=== PATIENT | female | born 1950 | race African-American/Black ===

== ENCOUNTER 2016-08-13 17:09 | Inpatient (IN) | payer BC, OTHER ==
[~2016-08-13] VITALS: Ht 170.2 cm; Wt 72.1 kg
--- NOTE | ~2016-08-13 | CNG ---
[facility] [place] [address] CYTO-NONGYN REPORT PROCEDURE Name: NESHA DUMONT Room #: 441-P DIS IN M.R.#: [id number] Admission: 08/13/16 Date of : 54 Discharge: 08/16/16 Report #: [id number] Path Case #: [id number] CYTOPATHOLOGY REPORT COLLECTION DATE: 08/15/2016 RECEIVED DATE: 08/15/2016 SUBMITTING PHYS: Dr. aZk Claudio OTHER PHYS: Dr. Zeus Burt CLINICAL HISTORY: HTN crisis. See also [id number]. SPECIMEN(S) RECEIVED: A.Bronchial brushings, RUL B.Bronchial brush rinse, RUL C.TBNA, RBI D.TBNA, RBI Passes 2-3 E.Bronchial wash, NOS F.Bronchial brushings, RBI G.Bronchial brush rinse, RBI * * * * * * * * * * * * FINAL DIAGNOSIS: A. Lung, right upper lobe, bronchial brushings: - MALIGNANT CELLS IDENTIFIED WITH FEATURES OF CARCINOMA. B. Lung, right upper lobe, bronchial brush rinse: - MALIGNANT CELLS IDENTIFIED WITH FEATURES OF CARCINOMA. C. Lung, RBI, TBNA: - MALIGNANT CELLS IDENTIFIED WITH FEATURES OF CARCINOMA. D. Lung, RBI Passes 2-3, TBNA: - MALIGNANT CELLS IDENTIFIED WITH FEATURES OF CARCINOMA. E. Lung, bronchial washing: - RARE MALIGNANT CELLS IDENTIFIED WITH FEATURES OF CARCINOMA. F. Lung, RBI, bronchial brushings: - RARE SINGLE ATYPICAL CELLS IDENTIFIED, MORPHOLOGICALLY SIMILAR TO THE ONES IDENTIFIED IN THE BRUSHING SMEARS. G. Lung, bronchial brush rinse: - RARE SINGLE ATYPICAL CELLS IDENTIFIED, MORPHOLOGICALLY SIMILAR TO THE ONES IDENTIFIED IN THE BRUSHING SMEARS. COMMENT: Co-review: Dr. Jian Hodges. Findings of this case are relayed to Dr. Zak Claudio and Dr. Yadira Burt at approximately 1:50 p.m. on 08/16/16. The case is discussed at the Thoracic Tumor Conference on 08/17/2016. Immunohistochemical stains are performed to further characterize the neoplasm (cell block). TTF-1 Non-reactive [address] [address] CYTO-NONGYN REPORT PROCEDURE Name: NESHA DUMONT Room #: 441-P DIS IN M.R.#: [id number] Admission: 08/13/16 Date of : 54 Discharge: 08/16/16 Report #: [id number] Path Case #: [id number] AE1/AE3 Strong membranous reactivity and dot-like reactivity present P40 - Non-reactive Synaptophysin - Non-reactive Chromogranin - Non-reactive The concurrent biopsy tissue ([id number]) showed the same. An extended immunohistochemical stain panel is performed on this specimen which is pending at the time of this report. The results will be reported separately. Please see separate report for details. (IUV:db; 08/16/2016) PATHOLOGIST: Kathy Hyman M.D. REPORT ELECTRONICALLY SIGNED BY: Kathy Hyman M.D. DATE/TIME: 08/17/2016 16:01 * * * * * * * * * * * * GROSS PATHOLOGY: A. Bronchial brushings, RUL: The specimen is labeled "Bridges, Demaira" and consists of three fixed slides. B. Bronchial brush rinse, RUL: The specimen is labeled "Bridges, Demaira" and consists of a brush tip in fixative. One ThinPrep slide was prepared. C. TBNA, RBI: The specimen is labeled "Bridges, Demaira" and consists of two fixed slides. D. TBNA, RBI Passes 2-3: The specimen is labeled "Bridges, Demaira". Ten mL of cloudy brown fluid in formalin from the needle rinse is submitted and a cell block only was prepared from this material. E. Bronchial wash, NOS: The specimen is submitted unfixed, labeled "Bridges, Demaira". Received by the Cytology Department is 10 mL of red fluid. One ThinPrep slide was prepared. F. Bronchial brushings, RBI: The specimen is labeled "Bridges, Demaira" and consists of three fixed slides. G. Bronchial brush rinse, RBI: The specimen is labeled "Bridges, Demaira" and consists of a brush tip in fixative. One ThinPrep slide was prepared. (clt 08.15.2016) WIND TUNNEL ENGINEER(S): JUAN Schumacher([facility]) INITIAL CPT CODE(S): A; 44568 B; 31810 C; 17703 D; 08183, 03491, 56860, 15669, 80576, 06427, 68214 E; 89849 F; 80884 G; 44629 Professional services performed by [facility] at [facility] [address] [place] [address] [facility] [place] [address] CYTO-NONGYN REPORT PROCEDURE Name: NESHA DUMONT Room #: 441-P DIS IN M.R.#: [id number] Admission: 08/13/16 Date of : 54 Discharge: 08/16/16 Report #: [id number] Path Case #: [id number] [facility] at [address] [place] [address], [address], [place] [address]. [address], [facility] [address] [place] [address] PHONE: [phone] DIRECTOR: Devonte Clemente M.D. * * * END OF REPORT * * *
--- NOTE | ~2016-08-13 | EKG ---
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: [id number] : 1950 Requested By: Trinidad Chino Order Number: [id number] MD: James Marshall Measurements Intervals Warren Rate: 84 P: 42 OK: 142 QRS: -10 QRSD: 96 T: 46 QT: 373 QTc: 441 Interpretive Statements Sinus rhythm No significant abnormality No previous ECG available for comparison Electronically Signed On 08-15-2016 9:13:06 CDT by James Marsahll [email or web address] <ELECTRONICALLY SIGNED> By: James Marshall MD, [facility] 08/15/16 0913 1722 1722 James Marshall MD, [facility] /EPI
--- NOTE | ~2016-08-13 | S ---
[facility] [place] [address] SURGICAL PATH RPT PROCEDURE Name: NESHA DUMONT Room #: 441-P [facility] IN M.R.#: [id number] Admission: 08/13/16 Date of : 54 Discharge: 08/16/16 Report #: [id number] Path Case #: [id number] PATHOLOGY REPORT COLLECTION DATE: 08/15/2016 RECEIVED DATE: 08/15/2016 SUBMITTING PHYS: Dr. Zak Claudio OTHER PHYS: Dr. Zeus Spence SPECIMEN(S) RECEIVED: A.Biopsy forceps RBI * * * * * * * * * * * * FINAL DIAGNOSIS: Bronchus, RBI, biopsy: - POSITIVE FOR MALIGNANCY; CONSISTENT WITH A POORLY DIFFERENTIATED CARCINOMA (PLEASE SEE COMMENT). COMMENT: Examination shows a tumor with extensive apoptotic bodies as well as necrosis associated with a crush artifact. Multiple immunohistochemical stains including TTF-1, Napsin, p63, CK5/6, AE1/AE3, CD56, and Synaptophysin are ordered on block A1. The results of these will be reported in an addendum to follow with a refined diagnosis. Co-review: Dr. Jian Hodges Findings of this case are discussed with Dr. Zak Claudio at approximately 1:30 p.m. on 08/17/16. (IUV:mgr; 08/17/2016) PATHOLOGIST: Kathy Hyman M.D. REPORT ELECTRONICALLY SIGNED BY: Kathy Hyman M.D. DATE/TIME: 08/17/2016 15:53 * * * * * * * * * * * * GROSS PATHOLOGY: The specimen is received in formalin labeled "MIKAL Renteria". Received are multiple segments of pale curiel soft tissue measuring 0.8 x 0.7 x 0.1 cm in aggregate dimensions. The specimen is filtered and entirely submitted in cassette A1. (CAA; 08/16/2016) CLINICAL HISTORY: HTN crisis [facility] [place] [address] SURGICAL PATH RPT PROCEDURE Name: NESHA DUMONT Room #: 441-P [facility] IN M.R.#: [id number] Admission: 08/13/16 Date of : 54 Discharge: 08/16/16 Report #: [id number] Path Case #: [id number] INITIAL CPT CODE(S): A; 27900, 00401, 68839, 80967, 80572, 76093, 46323, 25030 Professional services performed by [facility] at [facility] [address], [place] [address] Technical services performed by [facility] at [address] [place] [address], [facility] [address] [address]. [facility] [address] [place] [address] PHONE: [phone] DIRECTOR: Devonte Clemente M.D. * * * END OF REPORT * * *
[2016-08-13 17:15] VITALS: BP 200/144
[2016-08-13] MEDS ORDERED: SINGULAIR 10 MG10 M1 PO (17:30)
[2016-08-13] MEDS ORDERED: ACCUNEB SO1.25 MG/1 INH (17:33)
[2016-08-13 17:58] LABS: BASOPHILS 0.9 % (0.0-2.0); EOSINOPHILS 1.2 % (0.0-3.0); HEMATOCRIT 33.9 % (37.0-47.0); HEMOGLOBIN 11.4 gm/dL (12.0-15.0); LYMPHOCYTES 20.5 % (24.0-44.0); MCH 27.2 pg (26.0-34.0); MCHC 33.7 g/dL (28.0-37.0); MCV 80.8 fL (80.0-100.0); MONOCYTES 11.9 % (1.0-8.0); PLATELET COUNT 352 thou/uL (150-400); POLYS 65.5 % (36.0-66.0); RBC 4.19 mil/uL (4.20-5.00)
[2016-08-13 17:59] LABS: MANUAL DIFF NO
[2016-08-13 18:04] LABS: URINE BILIRUBIN NEGATIVE (Negative); URINE BLOOD 3+ (Negative); URINE COLOR YELLOW; URINE GLUCOSE-RANDOM* NEGATIVE (Negative); URINE KETONES NEGATIVE (Negative); URINE NITRITE NEGATIVE (Negative); URINE PROTEIN (DIPSTICK) TRACE (Negative); URINE UROBILINOGEN 0.2 E.U./dl (0.2-1.0)
[2016-08-13 18:07] LABS: ANION GAP 12 mmol/L (7-16); BUN 26 mg/dL (7-18); CALCIUM 10.5 mg/dL (8.5-10.1); CHLORIDE 100 mmol/L (98-107); CO2 23 mmol/L (21-32); CREATININE 0.8 mg/dL (0.6-1.0); GLUCOSE 90 mg/dL (74-106); POTASSIUM 4.1 mmol/L (3.5-5.1); SODIUM 135 mmol/L (136-145)
[2016-08-13 18:18] LABS: ALBUMIN 2.9 g/dL (3.4-5.0); ALKALINE PHOSPHATASE 88 U/L (46-116); NT-PRO BRAIN NAT PEPTIDE 139 pg/mL (<300); SGOT 51 U/L (15-37); SGPT 21 U/L (30-65); TOTAL BILIRUBIN 0.5 mg/dL (<0.1-1.0); TOTAL PROTEIN 9.8 g/dL (6.4-8.2); TROPONIN-I < 0.04 ng/mL (<0.04-0.07)
[2016-08-13 18:21] LABS: SQUAMOUS 0-3 Few /LPF (0-3)
[2016-08-13 18:22] LABS: CASTS None Seen /LPF (None Seen); CRYSTALS None Seen /LPF (None Seen); URINE WBC >25 Many /HPF (0-5)
[2016-08-13 20:38] LABS: CHOLESTEROL 152 mg/dL (<200); HDL CHOLESTEROL 45 mg/dL (>40); LDL CHOLESTEROL 90 mg/dL (<100); TC:HDL 3.4 Ratio (Not establshd); TRIGLYCERIDE 89 mg/dL (<150); VLDL 18 mg/dL (<40)
[2016-08-13 21:18] VITALS: BP 176/98
[2016-08-13 21:31] VITALS: BP 161/83
[2016-08-14 00:01] VITALS: BP 173/93
[2016-08-14 05:34] VITALS: BP 170/101
[2016-08-14 08:32] VITALS: BP 154/89
[2016-08-14 16:00] VITALS: BP 161/76
[2016-08-14 19:50] VITALS: BP 184/96
[2016-08-15 05:00] LABS: HEMATOCRIT 31.4 % (37.0-47.0); HEMOGLOBIN 10.3 gm/dL (12.0-15.0); MCH 26.2 pg (26.0-34.0); MCHC 32.9 g/dL (28.0-37.0); MCV 79.5 fL (80.0-100.0); RBC 3.95 mil/uL (4.20-5.00); RDW 14.9 % (10.5-14.5); WBC 4.1 thou/uL (4.0-11.0)
[2016-08-15 05:18] LABS: ALBUMIN 2.5 g/dL (3.4-5.0); CALCIUM 10.2 mg/dL (8.5-10.1); CREATININE 0.7 mg/dL (0.6-1.0); MAGNESIUM 1.9 mg/dL (1.8-2.4); PHOSPHORUS 3.3 mg/dL (2.5-4.9); POTASSIUM 3.7 mmol/L (3.5-5.1); TOTAL BILIRUBIN 0.6 mg/dL (<0.1-1.0); TOTAL PROTEIN 8.7 g/dL (6.4-8.2)
[2016-08-15 05:53] VITALS: BP 168/82
[2016-08-15 08:00] VITALS: BP 166/80
[2016-08-15 19:38] VITALS: BP 186/81
[2016-08-16 00:12] VITALS: BP 152/79
[2016-08-16 08:31] VITALS: BP 155/79
[2016-08-16] MEDS ORDERED: CEFUROXIME250 MG PO (10:23)
[2016-08-16] MEDS ORDERED: NORVASC10 MG PO (10:24)
[2016-08-16] MEDS ORDERED: HYDROCODON-ACE1 EAC7 PO (10:24)
[2016-08-16] MEDS ORDERED: BENAZEPRIL HCL20 MG PO (10:24)
[2016-08-16 10:38] VITALS: BP 155/79
== END 2016-08-16 12:10 | disposition home or self-care (01) | DRG 264 ==
LOC: ER 17:09 → 4S 19:56 → EROBS 19:56 → 4S 21:14
PROVIDERS: Hospitalist; Nurse Practitioner Family; Registered Nurse
PROC: 0BB38ZX Excision of Right Main Bronchus, Via Natural or Artificial Opening Endoscopic, Diagnostic (ICD-10-PCS; principal; 2016-08-15)
PROC: 0BBC8ZX Excision of Right Upper Lung Lobe, Via Natural or Artificial Opening Endoscopic, Diagnostic (ICD-10-PCS; principal; 2016-08-15)
DX: I16.9 Hypertensive crisis, unspecified (principal); C34.91 Malignant neoplasm of unspecified part of right bronchus or lung; N39.0 Urinary tract infection, site not specified; E83.52 Hypercalcemia; E87.5 Hyperkalemia; I11.0 Hypertensive heart disease with heart failure; I50.9 Heart failure, unspecified; I16.0 Hypertensive urgency; Z88.0 Allergy status to penicillin; Z79.899 Other long term (current) drug therapy; Z87.891 Personal history of nicotine dependence; Z80.3 Family history of malignant neoplasm of breast; Z99.81 Dependence on supplemental oxygen
CPT/HCPCS: 10100

== ENCOUNTER → 2016-08-30 | Outpatient (CLI) | payer BC, OTHER ==
[~2016-08-30] MED LIST: ACCUNEB SO1.25 MG/1 INH; BENAZEPRIL HCL20 MG PO; CEFUROXIME250 MG PO; HYDROCODON-ACE1 EAC7 PO; NORVASC10 MG PO; SINGULAIR 10 MG10 M1 PO
[2016-08-30 11:05] LABS: APTT 26.9 Seconds (24.5-32.8); PROTIME 10.7 Seconds (9.3-11.4)
== END ==
LOC: ULTRA 08:09
PROVIDERS: Internal Medicine Hematology & Oncology
DX: C34.90 Malignant neoplasm of unspecified part of unspecified bronchus or lung (principal); J90 Pleural effusion, not elsewhere classified